=== PATIENT | female | born 1985 | race Caucasian/White ===

== ENCOUNTER 2020-06-19 08:27 | Outpatient (CLI) | payer BC, SELFPAY ==
--- NOTE | ~2020-06-19 | XR_ITS ---
EXAMINATION: XR chest 2V DATE: 06/19/2020 08:53 INDICATION: Smoker presenting with cough TECHNIQUE: PA and lateral views of the chest were obtained. COMPARISON: None FINDINGS: The lungs are clear with no focal airspace opacities, pulmonary edema, pleural effusion or pneumothor ax. The cardiomediastinal silhouette is normal. Mild thoracic spondylosis. IMPRESSION: 1. No acute cardiopulmonary disease. Reviewed, dictated and finalized at location B.
[2020-06-19 08:56] LABS: Basophils Absolute Auto 0.1 K/mm3 (0.0-0.1); Basophils Percent Auto 0.9 % (0.2-1.2); Eosinophils Absolute Auto 0.2 K/mm3 (0-0.3); Eosinophils Percent Auto 2.7 % (0-4.4); Hematocrit 39.7 % (37.0-47.0); Hemoglobin 13.2 g/dL (12.0-15.0); Immature Granulocyte Absolute 0.03 K/mm3 (0.00-0.031); Immature Granulocyte Percent A 0.3 % (0-0.5); Lymphocytes Absolute Auto 2.83 K/mm3 (0.9-3.2); Lymphocytes Percent Auto 32.7 % (18.3-44.2); Mean Corpuscular HGB Conc 33.2 g/dl (32-36); Mean Corpuscular Hemoglobin 32.3 pg (26-34); Mean Corpuscular Volume 97.1 fl (80-100); Mean Platelet Volume 10.2 fl (7.4-10.4); Monocytes Absolute Auto 0.7 K/mm3 (0.1-0.6); Monocytes Percent Auto 8.1 % (2.6-8.5); Neutrophils Absolute Auto 4.8 K/mm3 (1.3-6.7); Neutrophils Percent Auto 55.3 % (45.5-73.1); Platelet Count Result 342 k/mm3 (150-375); Red Blood Count 4.09 M/mm3 (4.2-5.4); Red Cell Distribution Width 13.2 % (11.5-14.5); White Blood Count 8.7 K/mm3 (4.5-10.0)
[2020-06-19 09:02] LABS: Add Urine Microscopic? YES; Appearance Urine Cloudy (Clear); Bilirubin Urine Negative (Negative); Blood Urine Negative (Negative); Color Urine Yellow (Yellow); Glucose Urine UA Negative (Negative); Ketones Urine Negative (Negative); Leukocyte Esterase Ur Negative LEU/UL (Negative); Mucus Urine Rare /lpf; Nitrate Urine Negative (Negative); Protein Urine 1+ mg/dL (Negative); RBC Urine 0-2 /hpf (0-2); Specific Grav Ur 1.018 (1.001-1.035); Squamous Epithelial Cell Urine Many /hpf (Few); WBC Urine 0-3 /hpf
[2020-06-19 09:06] LABS: Alanine Aminotransferase 14 U/L (4-35); Albumin Level 4.1 g/dL (3.5-5.1); Alkaline Phosphatase 65 U/L (38-126); Anion Gap 4 mmol/L (8-16); Aspartate Amino Transferase 25 U/L (14-36); Bilirubin,Total 0.5 mg/dL (0.2-1.3); Blood Urea Nitrogen 9 mg/dL (7-17); Calcium 9.1 mg/dL (8.4-10.2); Carbon Dioxide 27 mmol/L (22-30); Chloride 106 mmol/L (98-107); Cholesterol 155 mg/dL (0-200); Estimated Glomerular Filt Rate > 60; Glucose 93 mg/dL (65-105); HDL Direct 48 mg/dL; Potassium 4.1 mmol/L (3.4-5.0); Sodium 137 mmol/L (137-145); Triglycerides 78 mg/dL (<150)
[2020-06-19 09:17] LABS: LDL Cholesterol Direct 84 mg/dL
[2020-06-19 09:53] LABS: Vitamin D 25 Hydroxy 36.9 ng/mL
== END 2020-06-19 08:28 | disposition home or self-care (01) ==
PROVIDERS: PCP Family Medicine; Visit Provider Family Medicine
DX: E55.9 Vitamin D deficiency, unspecified (principal); F17.200 Nicotine dependence, unspecified, uncomplicated; Z00.00 Encounter for general adult medical examination without abnormal findings; M47.814 Spondylosis without myelopathy or radiculopathy, thoracic region
CPT/HCPCS: 36415; 71046; 80053; 80061; 81001; 82306; 83036; 84443; 85025

== ENCOUNTER 2021-07-07 08:20 | Outpatient (CLI) | payer BC, SELFPAY ==
--- NOTE | ~2021-07-07 | XR_ITS ---
EXAMINATION: XR chest 2V Exam Date/Time: 07/07/2021 8:30 CDT CLINICAL HISTORY: ABNORMAL WEIGHT LOSS Comparison: 06/19/2020. RESULT: Lines, tubes, and devices: None. Lungs and pleura: Hyperinflated, as can be seen with emphysema, otherwise clear. Cardiomediastinal silhouette: Stable cardiomediastinal silhouette. Other: No acute osseous or upper abdominal finding. IMPRESSION: No acute cardiopulmonary process Reviewed, dictated and finalized at location K.
[2021-07-07 08:54] LABS: Basophils Absolute Auto 0.1 K/mm3 (0.0-0.1); Basophils Percent Auto 0.9 % (0.2-1.2); Eosinophils Absolute Auto 0.1 K/mm3 (0-0.3); Eosinophils Percent Auto 1.6 % (0-4.4); Hemoglobin 13.9 g/dL (12.0-15.0); Immature Granulocyte Absolute 0.03 K/mm3 (0.00-0.031); Immature Granulocyte Percent A 0.3 % (0-0.5); Lymphocytes Absolute Auto 2.17 K/mm3 (0.9-3.2); Lymphocytes Percent Auto 24.7 % (18.3-44.2); Mean Corpuscular HGB Conc 33.1 g/dl (32-36); Mean Corpuscular Hemoglobin 32.3 pg (26-34); Mean Corpuscular Volume 97.4 fl (80-100); Mean Platelet Volume 10.5 fl (7.4-10.4); Monocytes Absolute Auto 0.8 K/mm3 (0.1-0.6); Monocytes Percent Auto 9.1 % (2.6-8.5); Neutrophils Absolute Auto 5.6 K/mm3 (1.3-6.7); Neutrophils Percent Auto 63.4 % (45.5-73.1); Platelet Count Result 326 k/mm3 (150-375); Red Blood Count 4.31 M/mm3 (4.2-5.4); Red Cell Distribution Width 14.1 % (11.5-14.5); White Blood Count 8.8 K/mm3 (4.5-10.0)
[2021-07-07 09:06] LABS: Alanine Aminotransferase 15 U/L (4-35); Albumin Level 4.4 g/dL (3.5-5.1); Alkaline Phosphatase 55 U/L (38-126); Anion Gap 6 mmol/L (8-16); Aspartate Amino Transferase 23 U/L (14-36); Bilirubin,Total 0.2 mg/dL (0.2-1.3); Blood Urea Nitrogen 10 mg/dL (7-17); Calcium 9.1 mg/dL (8.4-10.2); Carbon Dioxide 25 mmol/L (22-30); Chloride 107 mmol/L (98-107); Cholesterol 139 mg/dL (0-200); Estimated Glomerular Filt Rate > 60; Glucose 100 mg/dL (65-110); HDL Direct 43 mg/dL; Potassium 3.8 mmol/L (3.4-5.0); Sodium 138 mmol/L (137-145); Triglycerides 64 mg/dL (<150)
[2021-07-07 09:17] LABS: LDL Cholesterol Direct 72 mg/dL
[2021-07-07 09:33] LABS: Vitamin D 25 Hydroxy 36.6 ng/mL
[2021-07-07 10:12] LABS: Folic Acid 2.7 ng/mL (2.76->20)
[2021-07-11 14:30] LABS: Prolactin 7.8 ng/mL (***)
== END 2021-07-07 08:21 | disposition home or self-care (01) ==
LOC: ANHIMG 08:24
PROVIDERS: PCP Family Medicine; Visit Provider Nurse Practitioner Family
DX: N64.52 Nipple discharge (principal); Z13.220 Encounter for screening for lipoid disorders; Z13.9 Encounter for screening, unspecified; R63.4 Abnormal weight loss
CPT/HCPCS: 36415; 71046; 80053; 80061; 82306; 82607; 82746; 83036; 84146; 84443; 85025

== ENCOUNTER 2021-08-23 07:00 | Outpatient (CLI) | payer BC, SELFPAY ==
[2021-08-23 08:06] LABS: Basophils Absolute Auto 0.1 K/mm3 (0.0-0.1); Basophils Percent Auto 1.1 % (0.2-1.2); Eosinophils Absolute Auto 0.2 K/mm3 (0-0.3); Eosinophils Percent Auto 1.9 % (0-4.4); Hematocrit 41.4 % (37.0-47.0); Hemoglobin 13.5 g/dL (12.0-15.0); Immature Granulocyte Absolute 0.03 K/mm3 (0.00-0.031); Immature Granulocyte Percent A 0.4 % (0-0.5); Lymphocytes Absolute Auto 2.32 K/mm3 (0.9-3.2); Lymphocytes Percent Auto 27.9 % (18.3-44.2); Mean Corpuscular HGB Conc 32.6 g/dl (32-36); Mean Corpuscular Hemoglobin 31.9 pg (26-34); Mean Corpuscular Volume 97.9 fl (80-100); Mean Platelet Volume 10.6 fl (7.4-10.4); Monocytes Absolute Auto 0.7 K/mm3 (0.1-0.6); Monocytes Percent Auto 8.9 % (2.6-8.5); Neutrophils Percent Auto 59.8 % (45.5-73.1); Platelet Count Result 339 k/mm3 (150-375); Red Blood Count 4.23 M/mm3 (4.2-5.4); Red Cell Distribution Width 14.4 % (11.5-14.5); White Blood Count 8.3 K/mm3 (4.5-10.0)
[2021-08-23 09:19] LABS: Folic Acid 6.9 ng/mL (2.76->20)
[2021-08-23 09:34] LABS: Free T4 Free Thyroxine 1.12 ng/mL (0.78-2.19)
[2021-08-25 05:07] LABS: DHEA-Sulfate 170 mcg/dL (23-266); Insulin Level Total 1.9 uIU/mL (<=19.6); Thyroid Peroxidase Antibodies 240 IU/mL (<9)
[2021-08-25 07:54] LABS: FSH 7.1 mIU/mL (***); LH 8.1 mIU/mL (***); Progesterone 10.7 ng/mL (***); Prolactin 10.3 ng/mL (***); Triiodothyronine T3 Free 3.3 pg/mL (2.3-4.2)
[2021-08-26 13:22] LABS: Fecal Fat, Ql Normal (Normal)
[2021-08-27 14:40] LABS: Thyroid Stimulating Immunoglob <89 % baseline (<140)
[2021-08-27 14:59] LABS: Testosterone Free 2.7 pg/mL (0.1-6.4); Testosterone Total 28 ng/dL (2-45)
[2021-08-29 21:51] LABS: Estradiol, Ultrasensitive 50 pg/mL
[2021-08-30 14:00] LABS: Adrenocorticotropic Hormone 18 pg/mL (6-50)
[2021-09-27 11:02] LABS: Gliadin AB, IgG <1.0 U/mL (<15.0); TTG IGA AB <1.0 U/mL (<15.0)
== END 2021-08-23 07:01 | disposition home or self-care (01) ==
PROVIDERS: PCP Family Medicine; Visit Provider Internal Medicine Endocrinology, Diabetes & Metabolism
DX: R63.4 Abnormal weight loss (principal); N92.6 Irregular menstruation, unspecified; R53.83 Other fatigue
CPT/HCPCS: 36415; 82024; 82533; 82607; 82627; 82670; 82705; 82746; 83001; 83002; 83516; 83525; 84144; 84146; 84402; 84403; 84439; 84445; 84481; 85025; 86255; 86376